=== PATIENT | female | born 1945 | race Caucasian/White ===

== ENCOUNTER → 2017-03-06 | Outpatient (CLI) | payer MEDICARE ==
[~2017-03-06] MED LIST: ASPI-860 PO; CITA40TA5 PO; HYDR-3702 PO; LISI1TAB10 PO; METO25TA60 PO; OMEP20CA12 PO; VENL25TA2 PO
--- NOTE | 2017-03-06 13:19 | Diagnostic Imaging Report ---
INDICATION: Dyspnea with dizziness. PA and lateral views of the chest are obtained. No previous study is available at this time for comparison. FINDINGS: Heart size and pulmonary vascularity are within normal limits. There is no pneumothorax or consolidation. Minimal linear density in the left lung base may be due to subsegmental atelectasis or scarring. There is mild thoracic spondylosis. IMPRESSION: Linear atelectasis or scarring in the left base without evidence of acute abnormality detected. Dictated by: Dictated on workstation # [id number]
== END ==
LOC: RAD 12:52
PROVIDERS: ATTEND Family Medicine
DX: R06.09 Other forms of dyspnea (principal); J98.11 Atelectasis
CPT/HCPCS: 71020

== ENCOUNTER → 2017-03-06 | Outpatient (REF) | payer MEDICARE ==
[2017-03-06 12:56] LABS: BASOPHILS % (AUTO) 0 % (0-2); EOSINOPHILS # (AUTO) 0.1 10^3uL; EOSINOPHILS % (AUTO) 2 % (0-4); LYMPHOCYTES # (AUTO) 1.1 X10^3; MEAN CORPUSCULAR HGB CONC 34.7 g/dL (31.0-37.0); MEAN CORPUSCULAR VOLUME 91 FL (80-100); MEAN PLATELET VOLUME 8.6 FL (6.0-9.5); MONOCYTES # (AUTO) 0.5 X10^3; MONOCYTES % (AUTO) 8 % (3-11); NEUTROPHILS # (AUTO) 5.3 X10^3; NEUTROPHILS % (AUTO) 74 % (51-67); PLATELET COUNT 419 10^3uL (150-450); WHITE BLOOD COUNT 7.07 10^3uL (4.0-11.0)
[2017-03-06 13:14] LABS: ALBUMIN 4.3 g/dL (3.4-5.0); ANION GAP 17.3 MEQ/L (3-15); CALCULATED IONIZED CALCIUM 4.3 mg/dL (3.8-4.6); TOTAL PROTEIN 7.5 g/dL (6.4-8.5)
[2017-03-06 13:16] LABS: MEAN CORPUSCULAR HEMOGLOBIN 31.6 PG (26.0-34.0)
== END ==
LOC: LAB 12:41
PROVIDERS: ATTEND Family Medicine
DX: I10 Essential (primary) hypertension (principal); R06.09 Other forms of dyspnea; F41.1 Generalized anxiety disorder; F34.1 Dysthymic disorder; F10.21 Alcohol dependence, in remission
CPT/HCPCS: 80053; 80061; 84443; 85025

== ENCOUNTER → 2017-03-09 | Outpatient (CLI) | payer MEDICARE ==
[2017-03-09 12:26] LABS: BILIRUBIN,URINE Negative (Negative); CLARITY,URINE Clear; COLOR,URINE Yellow; GLUCOSE, URINE (UA) Negative (Negative); LEUKOCYTE ESTERASE ,URINE Negative (Negative); UROBILINOGEN,URINE 0.2 mg/dL (0.2-1.0)
[2017-03-09 12:32] LABS: RBC,URINE 0-2 /HPF; URINE CENTRIFUGED VOLUME 12 mL
== END ==
LOC: RAD 12:18
PROVIDERS: ATTEND Family Medicine
DX: I10 Essential (primary) hypertension (principal); R06.09 Other forms of dyspnea; F41.1 Generalized anxiety disorder; F34.1 Dysthymic disorder; F10.21 Alcohol dependence, in remission
CPT/HCPCS: 81003; 81015; 93306

== ENCOUNTER → 2017-03-16 | Outpatient (CLI) | payer MEDICARE | LOC: LAB 13:35 | PROVIDERS: ATTEND Family Medicine | DX: D64.9 Anemia, unspecified (principal) | CPT/HCPCS: 36415; 82607; 82746; 83540; 83550 ==

== ENCOUNTER → 2017-03-23 | Outpatient (CLI) | payer MEDICARE | LOC: LAB 03-22 14:55 → OB 15:00 | PROVIDERS: ATTEND Family Medicine | DX: Z53.8 Procedure and treatment not carried out for other reasons (principal) ==

== ENCOUNTER → 2017-03-27 | Outpatient (REF) | payer MEDICARE | LOC: LAB 15:25 | PROVIDERS: ATTEND Family Medicine | DX: D64.9 Anemia, unspecified (principal) ==